=== PATIENT | male | born 1960 | race Caucasian/White ===

== ENCOUNTER 2018-12-22 15:42 | Inpatient (IN) | payer OTHER ==
[~2018-12-22] VITALS: Ht 162.6 cm; Wt 97.5 kg
[2018-12-22] MEDS ORDERED: SODIUM CHLORIDE 0.9% 1000ML 1,000 ML IV STA (15:51)
[2018-12-22] MEDS ORDERED: HYDROCODONE/APAP 10MG-325MG TAB PO NR (16:00)
[2018-12-22] MEDS ORDERED: ONDANSETRON HCL INJ 2MG/ML 2ML 2 MG/ML VIAL IV NR (16:00)
[2018-12-22 16:12] LABS: BASOPHILS % 0.1 % (0.0-1.0); EOSINOPHILS % 0.4 % (0.0-6.0); HEMATOCRIT 43.4 % (38.2-49.6); HEMOGLOBIN 15.1 g/dL (14.0-18.0); MEAN CORPUSCULAR HEMOGLOBIN 31.6 pg (28-32); MEAN CORPUSCULAR HGB CONC 34.8 g/dL (31-35); MEAN CORPUSCULAR VOLUME 90.8 fL (81-99); MONOCYTES # (AUTO) 0.6 (0.2-0.8); MONOCYTES % 5.7 % (4.4-11.3); NEUTROPHILS # (AUTO) 9.1 (2.1-6.9); PLATELET COUNT 210 x10e3/uL (140-360); RED BLOOD COUNT 4.78 x10e6/uL (4.3-5.7); RED CELL DISTRIBUTION WIDTH 12.1 % (11.7-14.4)
[2018-12-22] MEDS ORDERED: KETOROLAC TROMETHAMINE 30 MG/ML VIAL IV NR (16:15)
[2018-12-22 16:32] LABS: ALANINE AMINOTRANSFERASE 34 IU/L (0-55); ALBUMIN/GLOBULIN RATIO 1.3 (0.8-2.0); ALKALINE PHOSPHATASE 58 IU/L (40-150); ANION GAP 16.1 mmol/L (8-16); BLOOD UREA NITROGEN 17 mg/dL (7-26); BUN/CREATININE RATIO 24 (6-25); CALCIUM 9.5 mg/dL (8.4-10.2); CARBON DIOXIDE 24 mmol/L (22-29); CHLORIDE 102 mmol/L (98-107); CREATINE KINASE 76 IU/L (30-200); CREATININE, SERUM 0.71 mg/dL (0.72-1.25); EST GLOMERULAR FILTRATION RATE > 60 ML/MIN (60-); GLUCOSE 151 mg/dL (74-118); POTASSIUM 4.1 mmol/L (3.5-5.1); SODIUM 138 mmol/L (136-145)
--- NOTE | 2018-12-22 17:20 | Diagnostic Imaging Report ---
History: Fall, headache and neck pain Comparison studies:None Technique: Axial images were obtained from the brain and cervical spine. Coronal and sagittal images reconstructed from the axial data. Intravenous contrast: None Dose modulation, iterative reconstruction, and/or weight based adjustment of the mA/kV was utilized to reduce the radiation dose to as low as reasonably achievable. Findings: Head CT: Scalp/skull: No abnormalities. No fractures, blastic or lytic lesions. Brain sulci: Appropriate for age. Ventricles: Normal in size and configuration. No hydrocephalus. Extra-axial spaces: No masses. No fluid collections. Parenchyma: No abnormal densities. No masses, hemorrhage, acute or chronic cortical vascular insults. Sellar/suprasellar region: No abnormalities. Craniocervical junction: Patent foramen magnum. No Chiari one malformation. Mild atherosclerotic calcifications of the carotid siphons Cervical spine CT: Fractures: None. Soft tissues: No gross abnormalities. Atlantoaxial articulation: Intact. Alignment: Reversal of the cervical spine lordosis. Mild dextroscoliosis. Cervicomedullary junction: No abnormalities. Patent foramen magnum. Vertebrae: No infection or neoplasm. Degenerative changes: Uncinate process and facet results in mild left foraminal narrowing and C4-C6. Incidental findings: Mild groundglass opacities at the right lung apex, nonspecific. Impression: Head CT: 1. No acute intracranial abnormality. Cervical spine CT: 1. No acute abnormalities. 2. Cannot exclude ligament, spinal cord and or vascular abnormalities on the basis of this examination. Signed by: DR Edwin Rodriguez M.D. on 12/22/2018 5:17 PM
--- NOTE | 2018-12-22 17:28 | Diagnostic Imaging Report ---
History: Fall, back pain Comparison studies: None Technique: Axial images were obtained from T12 through the sacrum. Coronal and sagittal images reconstructed from the axial data. Intravenous contrast: None Dose modulation, iterative reconstruction, and/or weight based adjustment of the mA/kV was utilized to reduce the radiation dose to as low as reasonably achievable. Findings: Number of non-rib bearing vertebral bodies: 5 Alignment: Normal lordosis. No scoliosis. Soft tissues: Paraspinal findings stranding at L1 level. Atherosclerotic calcifications of the abdominal aorta Paraspinal muscles: Unremarkable. Vertebrae: Acute compression fracture of L1 vertebral body with involvement of the superior endplate, anterior and posterior aspect of the vertebral body with mild retropulsion resulting in mild canal stenosis with approximately 10-20% loss of height. Degenerative changes: Heterogeneously hyperintense or Grossly patent canal and foramina. Sacroiliac joints: No degenerative changes. IMPRESSION: 1. Acute compression fracture of L1 superior endplate with mild retropulsion results in mild canal stenosis. 2. No significant (moderate or severe) canal stenosis or foraminal narrowing. The above finding was reported and acknowledged by Dr. Goldstein at 5:15 PM 12/22/2018. Signed by: DR Edwin Rodriguez M.D. on 12/22/2018 5:25 PM
[2018-12-22] MEDS ORDERED: DEXAMETHASONE SOD PHOS 10 MG/1 ML VIAL IM NR (17:30)
--- OUTSIDE RECORDS SUMMARY | 2018-12-22 18:10 | XMS REPORT ---
[facility] Address Unknown Phone Unavailable Care Team Providers Care Scale Adjuster Name Role Phone Steven WARREN Unavailable Unavailable Problems This patient has no known problems. Allergies, Adverse Reactions, Alerts This patient has no known allergies or adverse reactions. Medications This patient has no known medications. Results Test Description Test Time Test Comments Text Results Atomic Results Result Comments CT LUMBAR SPINE WO 2018-12-22 17:17:00 [facility] [address] [address] Patient Name: MARI LUDWIG MR #: [id number] : 1960 Age/Sex: 58/M Req #: [id number] Adm Physician: Ordered by: ROQUE HERRMANN WEB [employer]ODUCTION MANAGER Report #: [id number] Location: ER Room/Bed: Procedure: [id number] CT/CT LUMBAR SPINE WO Exam Date: 12/22/18 Exam Time: 1625 REPORT STATUS: Signed History: Fall, back pain Comparison studies: None Technique: Axial images were obtained from T12 through the sacrum. Coronal and sagittal images reconstructed from the axial data. Intravenous contrast: None Dose modulation, iterative reconstruction, and/or weight based adjustment of the mA/kV was utilized to reduce the radiation dose to as low as reasonably achievable. Findings: Number of non-rib bearing vertebral bodies: 5 Alignment: Normal lordosis. No scoliosis. Soft tissues: Paraspinal findings stranding at L1 level. Atherosclerotic calcifications of the abdominal aorta Paraspinal muscles: Unremarkable. Vertebrae: Acute compression fracture of L1 vertebral body with involvement of the superior endplate, anterior and posterior aspect of the vertebral body with mild retropulsion resulting in mild canal stenosis with approximately 10-20% loss of height. Degenerative changes: Heterogeneously hyperintense or Grossly patent canal and foramina. Sacroiliac joints: No degenerative changes. IMPRESSION: 1. Acute compression fracture of L1 superior endplate with mild retropulsion results in mild canal stenosis. 2. No significant (moderate or severe) canal stenosis or foraminal narrowing. The above finding was reported and acknowledged by Dr. Warren at 5:15 PM 12/22/2018. Signed by: DR Edwin Rodriguez M.D. on 12/22/2018 5:25 PM Dictated By: EDWIN GUIDRY MD 24 Transcribed By: DREW on 12/22/181724 COPY TO: ROQUE HERRMANN WEB PRODUCTION MANAGER CT BRAIN WO 2018-12-22 17:09:00 [address] [address] Patient Name: MARI LUDWIG MR #: [id number] : 1960 Age/Sex: 58/M Req #: [id number] Adm Physician: Ordered by: ROQUE HERRMANN [employer]ODUCTION MANAGER Report #: [id number] Location: ER Room/Bed: Procedure: [id number] CT/CT BRAIN WO Exam Date: 12/22/18 Exam Time: 1625 REPORT STATUS: Signed History: Fall, headache and neck pain Comparison studies:Non e Technique: Axial images were obtained from the brain and cervical spine. Coronal and sagittal images reconstructed from the axial data. Intravenous contrast: None Dose modulation, iterative reconstruction, and/or weight based adjustment of the mA/kV was utilized to reduce the radiation dose to as low as reasonably achievable. Findings: Head CT: Scalp/skull: No abnormalities. No fractures, blastic or lytic lesions. Brain sulci: Appropriate for age. Ventricles: Normal in size and configuration. No hydrocephalus. Extra-axial spaces: No masses. No flu id collections. Parenchyma: No abnormal densities. No masses, hemorrhage, acute or chronic cortical vascular insults. Sellar/suprasellar region: No abnormalities. Craniocervical junction: Patent foramen magnum. No Chiari one malformation. Mild atherosclerotic calcifications of the carotid siphons Cervical spine CT: Fractures: None. Soft tissues: No gross abnormalities. Atlantoaxial articulation: Intact. Alignment: Reversal of the cervical spine lordosis. Mild dextroscoliosis. Cervicomedullary junction: No abnormalities. Patent foramen magnum. Vertebrae: No infection or neoplasm. Degenerative changes: Uncinate process and facet results in mild left foraminal narrowing and C4-C6. Incidental findings: Mild groundglass opacities at the right lung apex, nonspecific. Impression: Head CT: 1. No acute intracranial abnormality. Cervical spine CT: 1. No acute abnormalities. 2. Cannot exclude ligament, spinal cord and or vascular abnormalities on the basis of this examination. Signed by: DR Edwin Rodriguez M.D. on 12/22/2018 5:17 PM Dictated By: EDWIN RODRIGUEZ MD 16 Transcribed By: DREW on 12/22/181716 COPY TO: ROQUE HERRMANN NP CT CERVICAL SPINE WO 2018-12-22 17:09:00 [address] [address] Patient Name: MARI LUDWIG MR #: [id number] : 1960 Age/Sex: 58/M Req #: [id number] Adm Physician: Ordered by: ROQUE HERRMANN NP Report #: [id number] Location: ER Room/Bed: Procedure: [id number] CT/CT CERVICAL SPINE WO Exam Date: 12/22/18 Exam Time: 1625 REPORT STATUS: Signed History: Fall, headache and neck pain Comparison stud ies:None Technique: Axial images were obtained from the brain and cervical spine. Coronal and sagittal images reconstructed from the axial data. Intravenous contrast: None Dose modulation, iterative reconstruction, and/or weight based adjustment of the mA/kV was utilized to reduce the radiation dose to as low as reasonably achievable. Findings: Head CT: Scalp/skull: No abnormalities. No fractures, blastic or lytic lesions. Brain sulci: Appropriate for age. Ventricles: Normal in size and configuration. No hydrocephalus. Extra-axial spaces: No masses. No fluid collections. Parenchyma: No abnormal densities. No masses, hemorrhage, acute or chronic cortical vascular insults. Sellar/suprasellar region: No abnormalities. Craniocervical junction: Patent foramen magnum. No Chiari one malformation. Mild atherosclerotic calcifications of the carotid siphons Cervical spine CT: Fractures: None. Soft tissues: No gross abnormalities. Atlantoaxial articulation: Intact. Alignment: Reversal of the cervical spine lordosis. Mild dextroscoliosis. Cervicomedullary junction: No abnormalities. Patent foramen magnum. Vertebrae: No infection or neoplasm. Degenerative changes: Uncinate process and facet results in mild left foraminal narrowing and C4-C6. Incidental findings: Mild groundglass opacities at the right lung apex, nonspecific. Impression: Head CT: 1. No acute intracranial abnormality. Cervical spine CT: 1. No acute abnormalities. 2. Cannot exclude ligament, spinal cord and or vascular abnormalities on the basis of this examination. Signed by: DR Edwin Rodriguez M.D. on 12/22/2018 5:17 PM Dictated By: EDWIN RODRIGUEZ MD 16 Transcribed By: DREW on 12/22/181716 COPY TO: ROQUE HERRMANN NP
[2018-12-22] MEDS ORDERED: HYDROMORPHONE 2MG/ML 2 MG/ML ML IV PRN (18:30)
[2018-12-22] MEDS: SODIUM CHLORIDE 0.9% 1000ML 1,000 ML IV SCH (19:00)
[2018-12-22 20:30] VITALS: BP 175/91
[2018-12-22 21:05] VITALS: BP 175/91
--- NOTE | 2018-12-22 21:24 | NUR ---
SPOKE TO DR. CERRATO REGARDING BP. NEW ORDER RCV FOR NIFEDIPINE XL 30MG DAILY TO START NOW, HYDRALAZINE 10MG IV Q4H PRN AND ROUTINE CONSULT FOR DR. BANEGAS IN AM.
[2018-12-22] MEDS ORDERED: HYDRALAZINE HCL 20 MG/ML VIAL IV PRN (21:30)
[2018-12-22] MEDS: NIFEDIPINE CR 30 MG TAB PO SCH (22:11)
[2018-12-22 23:48] VITALS: BP 141/90
[2018-12-23 00:32] LABS: CREATINE KINASE 70 IU/L (30-200)
[2018-12-23] MEDS: MORPHINE SULFATE INJ 4 MG/ML INJ 1ML IV PRN ×4 (00:54→23:08)
[2018-12-23] MEDS: SODIUM CHLORIDE 0.9% 1000ML 1,000 ML IV SCH ×3 (00:55→23:07)
[2018-12-23 04:30] VITALS: BP 134/85
[2018-12-23 07:57] LABS: CREATINE KINASE 60 IU/L (30-200)
[2018-12-23 08:32] VITALS: BP 114/77
[2018-12-23] MEDS: NIFEDIPINE CR 30 MG TAB PO SCH (08:35)
[2018-12-23 08:45] VITALS: BP 114/77
[2018-12-23 12:06] VITALS: BP 128/72
[2018-12-23] MEDS: ONDANSETRON HCL INJ 2MG/ML 2ML 2 MG/ML VIAL IV PRN ×2 (13:48→23:12)
--- NOTE | 2018-12-23 15:00 | NUR ---
Received pt at this time from Med/Surg 1 at this time. Pt is aox4 and able to verbalize needs. Denies any pain at this time he was medicated for pain prior to transfer. Pt continues on on IVF NS@125.
--- NOTE | 2018-12-23 15:16 | Diagnostic Imaging Report ---
EXAMINATION: MRI of the lumbar spine without contrast HISTORY: Compression fracture of the lumbar spine (L1) after fall the day before and syncope COMPARISON: Lumbar spine CT 12/22/2018 TECHNIQUE: Sagittal T1, T2, STIR; axial T2 and proton density. FINDINGS: It is assumed that there are 5 lumbar vertebrae. Curvature/Alignment: Normal lordosis. Subtle thoracolumbar kyphosis. Vertebrae: Acute compression fracture of the L1 vertebral body with depression of the superior endplate (decreased vertebral body height by approximately 10%) and minimal about 1 mm posterior retropulsion minimally reaching the posterior cortex, with prominent subchondral bone marrow edema which is minimally extending to the right pedicle. No significant associated canal stenosis and no cord compression. There is no involvement of the posterior elements or ligamentous complex. Conus: Normal, terminating at L1-L2 Cauda equina: Unremarkable. Lower thoracic: Unremarkable. Paraspinal soft tissues: Unremarkable. Degenerative changes: No significant degenerative changes, no disc herniations, no spinal canal or foraminal stenosis. IMPRESSION: Unchanged mild acute compression/burst fracture of the L1 vertebral body with minimal retropulsion, no associated canal stenoses or cord compression. The posterior elements/ligaments are intact. Signed by: Dr. Leigh Alberto M.D. on 12/23/2018 3:13 PM
[2018-12-23 16:14] VITALS: BP 119/79
[2018-12-23] MEDS: ENOXAPARIN SOD INJ 40 MG/0.4 ML SYR SC SCH (17:06)
[2018-12-23 18:41] LABS: CREATINE KINASE 190 IU/L (30-200)
--- NOTE | 2018-12-23 19:30 | NUR ---
Patient visited in room during nursing rounds. Patient alert and oriented x3. Patient has frequent lower back pain and states he is unable to ambulate due to the fractured back (fx on L1). Patient on pain meds prn and on IVF (NS at 125ml/hr). Will monitor pt closely. Call saucedo within reach.
[2018-12-23 20:00] VITALS: BP 137/84
[2018-12-24] VITALS (8 sets, daily range): BP systolic 124–170; BP diastolic 81–95
--- NOTE | 2018-12-24 00:39 | History and Physical ---
CHIEF COMPLAINT: Syncope. HISTORY OF PRESENT ILLNESS: This is a 58-year-old male, morbidly obese with no other past medical history issues and nor does he take any medications at home, comes into the ED after he was chopping some onions and he grated one of his fingers on his hands in which he went to the restroom to stop the bleeding, syncopized and fell to the ground. There was no witnesses when this occurred. The patient denies any prodromal chest pain, palpitations, facial drooping, slurred speech, or any other issues. The patient was then brought into the ED for further evaluation. It seems that the patient likely had a vasovagal episode that led to this particular syncopal episode. The patient denies any recent cough, congestion, fever, or any other complaints. No chest pain. No palpitations. No abdominal pain or any other complaints. The patient states he is back to normal baseline with no other issues. The patient was seen and evaluated at bedside on the medical floor. Currently, he is doing well with no other issues at this time. REVIEW OF SYSTEMS: 1. Pertinent positives: Syncopal episode. 2. Pertinent negatives: Denies any chest pain, palpitations, nausea, vomiting, diarrhea, dysuria, hematuria, frequency, urgency, lightheadedness, dizziness, abdominal pain, headaches, shortness of breath, cough, congestion, fever, or any other complaints. The rest of 14-point review of systems are reviewed with the patient and are negative. ALLERGIES: NO KNOWN DRUG ALLERGIES. HOME MEDICATIONS: None. PAST MEDICAL HISTORY: None. PAST SURGICAL HISTORY: Reports none. FAMILY HISTORY: Hypertension and diabetes. SOCIAL HISTORY: No drugs. No alcohol. Does not smoke. Good social support. PHYSICAL EXAMINATION: VITAL SIGNS: Temperature is 98.7, pulse 89, respiratory rate is 20, blood pressure is 119/79, and pulse ox 96% on room air. GENERAL: Not in acute distress. Alert and oriented x3. Cooperative on examination. HEENT: Head is normocephalic and atraumatic. Warm to touch. Good cap refill. Eyes; pupils are equal, round, and reactive to light bilaterally. Extraocular movements intact bilaterally. NECK: Supple. Good range of motion throughout. No evidence of any erythema or exudates in the posterior pharynx. Has poor dentition. PULMONARY: Clear to auscultation bilaterally. No wheezing, rales, or rhonchi. No crackles appreciated. CARDIOVASCULAR: Positive S1 and S2. No murmurs, rubs, or gallops appreciated. GI: Abdomen is soft, nondistended, and nontender to palpation. Bowel sounds present. MUSCULOSKELETAL: Strength is 5/5 throughout. No evidence of any muscle deficits on examination. NEUROLOGICAL: Cranial nerves II through XII grossly intact. No evidence or any neurological deficits on exam. SKIN: Intact. Warm to touch. Good cap refill. PSYCHIATRIC: Normal affect and mood. EXTREMITIES: No edema. Good range of motion throughout. LABORATORY FINDINGS: White count is 7.7, hemoglobin is 15, hematocrit 43, and platelets of 210. Chemistry: Sodium 138, potassium 4.1, chloride 102, bicarb 24, anion gap of 16, BUN 17, creatinine 0.71, glucose is 151, calcium 9.5, total bilirubin was 1.5. AST 26, ALT 34, alkaline phosphatase 58. CK 76. Troponins were all negative. Total protein 7.1, albumin was 4. IMAGING STUDIES: CT lumbar spine shows acute compression fracture of L1, superior endplate with mild retropulsion resulting in mild canal stenosis. CT cervical spine was negative. CT brain was found to be negative. MRI of the lumbar spine; unchanged, acute compression burst fracture of L1 vertebral body with mild retropulsion. No associated canal stenosis or cord compression. Posterior elements of the ligaments are intact. IMPRESSION: 1. Syncopal episode of unknown etiology, seems to be vasovagal in nature. 2. Small laceration on his middle finger, but now not bleeding. 3. Hypotension. 4. Morbid obesity. PLAN: At this time, MRI of the lumbar spine has been reviewed. We will go ahead and get Neurosurgery to evaluate the patient. Treat the patient with some conservative treatment. He is currently doing well. He is having difficulty that he reports pain when he ambulates. In addition to his blood pressure, nifedipine XL has been ordered. I did order MRI of the brain, carotid ultrasound, 2D echo, Cardiology consultation, cardiac telemetry and one set of enzymes to rule out the etiology of his syncope. I feel like the patient likely syncopized from his underlying vasovagal episode when he was in the bathroom, attending to his bleeding to his finger. At this time, we will continue with these particular orders and put on Lovenox for DVT prophylaxis. MD BALJEET Love/SANTHOSH /[id number]
--- NOTE | 2018-12-24 01:45 | Consultation ---
DATE OF CONSULTATION: 12/23/2018 Cardiac Consultation. REASON FOR CONSULTATION: Syncope. HISTORY: A 58-year-old gentleman, who denied having any health problem, who was cutting an onion, he cut his finger and went to the bathroom to wash his hand and then he fell. He fractured his first lumbar vertebrae. His EKG showed Q-wave changes and cardiac consultation is obtained. I visited with the patient, who denied having any chest pain or any problem. He states everything preceded with his cutting finger. There is no prior history of syncope, although more than 17 years ago with similar problem was trauma to his hand and so on he passed out briefly. 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 He is on his feet all the time, he will go up and down, he does not have any angina, however, his legs get tired. He does have swelling at the end of the day of his feet. There is no recent travel. There is no pleuritic or pericarditic component of chest pain. REVIEW OF SYSTEMS: Done to all 14 systems, will be summarized for clarity. GENERAL: No fever. No chills. HEENT: PULMONARY: No cough. No hemoptysis. CARDIAC: No angina. Only shortness of breath on exertion and swelling of the leg at the end of the day. No prior palpitation. Only one episode of syncope as described above. GI: No hematemesis. No melena. : No hematuria. No dysuria. MUSCULOSKELETAL: Only leg fatigue on exertion. No claudication. Minimal swelling of the leg at the end of the day. SKIN: Some discoloration of the lower extremity. HEMATOLOGY: No easy bruising or bleeding. NEUROLOGIC: No headache. No seizure activity. ENDOCRINE: No polyuria. No polydipsia. SOCIAL HISTORY: He is , is nonsmoker and non-alcohol drinker. 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 FAMILY HISTORY: Father was diabetic, but he of bladder cancer. He also had prostate cancer. Mother of stomach cancer at age 67. Only one sister with metabolic syndrome. No children. HOME MEDICATIONS: None. ALLERGIES: NONE. PAST MEDICAL HISTORY: The patient had one prior episode of syncope 17 years ago. The patient had appendectomy and hernia surgery. PHYSICAL EXAMINATION: VITAL SIGNS: Height of 5 feet 4 inches, weight of 197 pounds. Blood pressure 120/80, heart rate of 90, respiratory rate of 18. HEENT: Pupils are reactive. NECK: No elevation of jugular venous pulsation. No bruit. CHEST: Clear to auscultation and percussion. HEART: PMI 5th left intercostal space. Normal first and second heart sound. ABDOMEN: Soft. There is good bowel sounds. No organomegaly. No abdominal bruit. EXTREMITIES: No clubbing. Some skin discoloration of the rosario. No edema currently. He has good distal pulses. No delay between pulses. NEUROLOGIC: Awake, alert, oriented. No motor or sensory deficits. LAB DATA: As per chart. CT scan of chest showed no acute changes. EKG showing nonspecific T-wave changes, although they are seen also in the anterior leads. IMPRESSION AND PLAN: 1. One episode of syncope seems to be vasovagal. 2. No active cardiac symptoms. 3. Abnormality on the T-wave are noted. RECOMMENDATIONS: Cardiac luis, my recommendations are to keep observation on telemetry. Most likely this episode is vasovagal. We will check lipid profile. We will review his echocardiogram and carotid Doppler, which were ordered when they will be done. Case discussed and explained to the patient and his sister. They were advised to have stress test after resolution of his problem. Of course, if in case of him having any symptoms then further steps to be done. MD TRES Rodriguez/SANTHOSH /[id number]
[2018-12-24] MEDS: MORPHINE SULFATE INJ 4 MG/ML INJ 1ML IV PRN ×5 (03:29→22:13)
[2018-12-24] MEDS: ONDANSETRON HCL INJ 2MG/ML 2ML 2 MG/ML VIAL IV PRN ×5 (03:29→22:13)
[2018-12-24 06:18] LABS: CHOL/HDL RATIO 3.6 (3.9-4.7)
[2018-12-24 06:43] LABS: THYROID STIMULATING HORMONE 3.537 uIU/mL (0.350-4.940)
--- NOTE | 2018-12-24 08:18 | NUR ---
Pt was able to sit on side of the bed with minimal assistance. Pt stated feeling slight discomfort during transition. Pt up in chair at bedside with assistance, able to bear weight to BLE. Pt stated that he feels better sitting up to remove pressure off back.
[2018-12-24] MEDS: ENOXAPARIN SOD INJ 40 MG/0.4 ML SYR SC SCH (18:08)
--- NOTE | 2018-12-24 19:35 | NUR ---
Patient visited in room during nursing rounds. Patient alert and oriented x3. Patient has frequent lower back pain and states he is unable to ambulate due to the fractured back (fx on L1). Patient on pain meds prn. Will monitor pt closely. Call saucedo within reach.
--- NOTE | 2018-12-24 21:02 | Progress Note ---
DATE: 12/24/2018 Medicine Progress Note SUBJECTIVE: The patient is complaining of lower back pain. Still awaiting Neurosurgery evaluation. OBJECTIVE: VITAL SIGNS: Temperature 98.0, pulse 91, respiratory rate is 20, blood pressure 170/95, and pulse ox 95% on room air. GENERAL: Not in acute distress. Alert and oriented x3. Cooperative on examination. HEENT: Head is normocephalic and atraumatic. Eyes; pupils are equal, round, and reactive to light bilaterally. Extraocular movements are intact bilaterally. Throat, no evidence of erythema or exudates in the posterior pharynx. Has poor dentition. NECK: Supple. Good range of motion. PULMONARY: Clear to auscultation bilaterally. No wheezing, no rales, no rhonchi, no crackles appreciated. CARDIOVASCULAR: Positive S1, S2. No murmurs, rubs, or gallops appreciated. ABDOMEN: Soft, nondistended, and nontender to palpation. Bowel sounds present. MUSCULOSKELETAL: Strength is 5/5 throughout. No evidence of any muscle deficits on examination. No weakness appreciated. NEUROLOGICAL: Cranial nerves II through XII grossly intact. No evidence of any neurological deficits on exam. SKIN: Intact. Warm to touch. Good cap refill. PSYCHIATRIC: Normal affect and mood. EXTREMITIES: No edema. Good range of motion throughout. LABORATORY DATA: White count 10.7, hemoglobin 15.1, hematocrit 43, and platelets of 210. Chemistry reviewed and stable. MICROBIOLOGY: None. IMAGING: Nothing new. IMPRESSION: 1. Syncopal episode of unknown etiology, seems to be vasovagal in nature. 2. Small laceration of the middle finger, resolved. 3. Hypotension, resolved. 4. Morbid obesity. PLAN: At this time, a 2D echo was performed, showed no evidence of any significant stenosis. As per preliminary results, 2D echo showed an EF of 50% to 55%. Await all results from Cardiology. The patient needs to follow up with outpatient cardiology for cardiac stress test. The last syncopal episode is vasovagal in nature. All his cardiac enzymes are negative. No alarms on cardiac telemetry. Awaiting for Neurosurgery evaluation. Pain control. Once cleared by Neurosurgery, the patient can be discharged home. MD BALJEET Love/MODL /[id number]
[2018-12-25] VITALS (9 sets, daily range): BP systolic 144–186; BP diastolic 81–102
--- NOTE | 2018-12-25 00:15 | NUR ---
Patient called nurse's station and asked for nurse. Patient was assessed and pt c/o shortness of breath (i.e. described as unable to catch his breath) and felt his heart was racing. Tele check revealed 123-126 HR sinus tachycardia. O2 sat 95% on 2L NC. Informed pt will notify Dr. Cary to obtain possible orders.
--- NOTE | 2018-12-25 00:25 | NUR ---
Called Dr. Cary and informed about patient feeling short of breath and heart "racing" after receiving a dose of Hydralazine 10mg IV. V/S report after receiving a dose of Hydralazine was: BP = 151/82, HR = 126, O2 sat 95% on 2L NC. MD aware and ordered to start pt on Duoneb 3ml INH Q4hr prn and portable CXR in AM (12/25/18).
[2018-12-25] MEDS ORDERED: ALBUTEROL/IPRATROPIUM 3 ML NEB NEB PRN (00:30)
--- NOTE | 2018-12-25 00:40 | NUR ---
RT in room providing pt with breathing treatment.
[2018-12-25] MEDS: MORPHINE SULFATE INJ 4 MG/ML INJ 1ML IV PRN ×4 (02:08→20:28)
[2018-12-25] MEDS: ONDANSETRON HCL INJ 2MG/ML 2ML 2 MG/ML VIAL IV PRN ×4 (02:08→20:28)
[2018-12-25 06:22] LABS: BASOPHILS % 0.2 % (0.0-1.0); EOSINOPHILS % 0.4 % (0.0-6.0); HEMATOCRIT 41.6 % (38.2-49.6); HEMOGLOBIN 13.9 g/dL (14.0-18.0); LYMPHOCYTES # (AUTO) 0.7 (1.0-3.2); LYMPHOCYTES % 6.2 % (18.0-39.1); MEAN CORPUSCULAR HEMOGLOBIN 31.3 pg (28-32); MEAN CORPUSCULAR HGB CONC 33.4 g/dL (31-35); MEAN CORPUSCULAR VOLUME 93.7 fL (81-99); MONOCYTES # (AUTO) 0.8 (0.2-0.8); MONOCYTES % 7.3 % (4.4-11.3); NEUTROPHILS # (AUTO) 9.1 (2.1-6.9); NEUTROPHILS % 85.2 % (38.7-80.0); PLATELET COUNT 188 x10e3/uL (140-360); RED BLOOD COUNT 4.44 x10e6/uL (4.3-5.7); RED CELL DISTRIBUTION WIDTH 12.5 % (11.7-14.4)
--- NOTE | 2018-12-25 06:28 | Diagnostic Imaging Report ---
Examination: Single AP view of the chest. COMPARISON: None. INDICATION: Shortness of breath DISCUSSION: Lines/tubes: None. Lungs: Low lung volume in the right lung with lung base atelectasis. The left lung is clear. Pleura: No pleural effusion or pneumothorax. Heart and mediastinum: Prominent heart size. Bones and soft tissues: No acute bony abnormalities. IMPRESSION: Low lung volume in the right lung with atelectasis. Signed by: Dr. Mitch Hirsch M.D. on 12/25/2018 6:24 AM
[2018-12-25 06:29] LABS: ANION GAP 12.2 mmol/L (8-16); BLOOD UREA NITROGEN 17 mg/dL (7-26); BUN/CREATININE RATIO 27 (6-25); CALCIUM 9.1 mg/dL (8.4-10.2); CARBON DIOXIDE 26 mmol/L (22-29); CHLORIDE 106 mmol/L (98-107); CREATININE, SERUM 0.63 mg/dL (0.72-1.25); EST GLOMERULAR FILTRATION RATE > 60 ML/MIN (60-); GLUCOSE 117 mg/dL (74-118); POTASSIUM 4.2 mmol/L (3.5-5.1); SODIUM 140 mmol/L (136-145)
[2018-12-25] MEDS: NIFEDIPINE CR 30 MG TAB PO SCH (11:10)
--- NOTE | 2018-12-25 12:17 | NUR ---
CALL PLACED OUT TO DR. BANEGAS REGARDING FOLLOW-UP CONSULT- AWAITING CALLBACK.
--- NOTE | 2018-12-25 13:37 | Progress Note ---
DATE: 12/25/2018 Medicine Progress Note SUBJECTIVE: The patient states he is feeling much better today. He does have lower back pain. Pending neurosurgery evaluation. OBJECTIVE: VITAL SIGNS: Temperature is 96.7, pulse 98, respiratory rate is 20, blood pressure 161/96, pulse ox 96% on 2 L nasal cannula. GENERAL: Not in acute distress. Alert and oriented x3. Cooperative on examination. HEENT: Head is normocephalic and atraumatic. Eyes; pupils are equal, round, and reactive to light bilaterally. Extraocular movements are intact bilaterally. Throat, no evidence of erythema or exudates in the posterior pharynx. Has poor dentition. NECK: Supple. Good range of motion. PULMONARY: Clear to auscultation bilaterally. No wheezing, no rales, no rhonchi, no crackles appreciated. CARDIOVASCULAR: Positive S1, S2. No murmurs, rubs, or gallops appreciated. ABDOMEN: Soft, nondistended, and nontender to palpation. Bowel sounds present. MUSCULOSKELETAL: Strength is 5/5 throughout. No evidence of any muscle deficits on examination. No weakness appreciated. NEUROLOGICAL: Cranial nerves 2 through 12 grossly intact. No evidence of any neurological deficits on exam. SKIN: Intact. Warm to touch. Good cap refill. PSYCHIATRIC: Normal affect and mood. EXTREMITIES: No edema. Good range of motion throughout. LAB FINDINGS: Show white count 10.6, hemoglobin 13.9, hematocrit is 42, platelets are 188. Chemistry; sodium 140, potassium 4.2, chloride 106, bicarb 26, anion gap of 12, BUN is 17, creatinine is 0.63, glucose is 170, calcium is 9.1. TSH is 3.5. IMAGING STUDIES: Chest x-ray was negative. IMPRESSION: 1. Syncopal episode, likely to be vasovagal in nature. 2. Small laceration of the middle finger of his left hand, resolved. 3. Hypotension, resolved. 4. Morbid obesity. 5. Chronic back pain with underlying acute compression fracture of L1. PLAN: At this time, the patient refuses MRI of the brain. I discussed this with him with the nurse present and he continues to refuse it. We are awaiting neurosurgery evaluation and recommendations. Continue with pain control orally and avoid IV pain medicine. Plan to discharge soon. Per Cardiology, no further workup was needed. We will continue to follow the same plan of care. MD BALJEET Love/SANTH[place]H /[id number]
[2018-12-25] MEDS: ACETAMINOPHEN/CODEINE 300MG - 30MG TAB PO PRN (16:01)
--- NOTE | 2018-12-25 16:48 | NUR ---
RECEIVED CALL FROM DR. BANEGAS- DR. BANEGAS ASKED RN TO INFORM PATIENT NO SURGERY WILL BE NEEDED AND HE WILL SEE THE PATIENT TOMORROW. ASKED DR. BANEGAS FOR PT EVAL- ORDER RECEIVED FOR EVALUATION FOR CLEARANCE.
[2018-12-25] MEDS: ENOXAPARIN SOD INJ 40 MG/0.4 ML SYR SC SCH (17:34)
--- NOTE | 2018-12-25 19:46 | NUR ---
PATIENT IN STABLE CONDITION WITH NO S/S OF RESPIRATORY DISTRESS. CALL LIGHT IS WITHIN REACH, PATIENT INSTRUCTED TO CALL FOR ASSISTANCE NEEDED. BEDSIDE REPORT GIVEN TO ONCOMING NURSE.
--- NOTE | 2018-12-25 19:50 | NUR ---
Received change of shift report from AM nurse. Walking round completed.
[2018-12-26] VITALS: BP 168/96
[2018-12-26 04:00] VITALS: BP 113/63
--- NOTE | 2018-12-26 06:29 | NUR ---
Patient rest quitly in bed.
--- NOTE | 2018-12-26 07:05 | NUR ---
PATIENT IS IN STABLE CONDITION WITH NO S/S OF RESPIRATORY DISTRESS. PATIENT DENIES PAIN. BED ALARM ON. CALL LIGHT IS WITHIN REACH OF PATIENT, PATIENT INSTRUCTED TO CALL FOR ASSISTANCE NEEDED.
[2018-12-26 07:43] VITALS: BP 133/77
[2018-12-26 07:54] VITALS: BP 133/77
[2018-12-26] MEDS: NIFEDIPINE CR 30 MG TAB PO SCH (08:24)
--- NOTE | 2018-12-26 09:58 | NUR ---
PATIENT WORKED WITH PHYSICAL THERAPY- PATIENT AMBULATED FROM HIS ROOM TO THE NURSING STATION AND BACK. PUP MARKED COMPLETED. PATIENT SITTING UP IN THE RECLINER AND WILL CALL FOR ASSISTANCE NEEDED.
--- NOTE | 2018-12-26 10:19 | NUR ---
DR. BANEGAS ON THE UNIT- RECEIVED CLEARANCE FOR DISCHARGE. DR. BHANDARI'S N.PKamila ON THE UNIT- RECEIVED CLEARANCE FROM CARDIAC STANDPOINT AND FOR PATIENT TO F/U IN SEVERAL MONTHS.
[2018-12-26 11:16] VITALS: BP 138/86
[2018-12-26] MEDS ORDERED: DOCUSATE SODIUM LIQD 100 MG/10 ML UDC PO PRN (12:15)
[2018-12-26] MEDS: ACETAMINOPHEN/CODEINE 300MG - 30MG TAB PO PRN ×3 (12:42→19:55)
[2018-12-26 15:44] VITALS: BP 141/83
[2018-12-26] MEDS ORDERED: NIFEDIPINE ER30 M1 PO (15:56)
[2018-12-26] MEDS ORDERED: TYLENOL # 31 EA PO (15:56)
--- NOTE | 2018-12-26 16:59 | Consultation ---
DATE OF CONSULTATION: 12/26/2018 REASON FOR CONSULTATION: L1 compression fracture. HISTORY OF PRESENT ILLNESS: The patient is a 58-year-old obese man, who fell at home and presented to the emergency room here with back pain several days ago. MRI revealed a very mild L1 compression fracture without significant retropulsion or compromise of the spinal canal. The patient has been hospitalized here since 12/22/2018 and being treated with pain medications. His pain has markedly improved. Today, he is ambulating without any significant pain. He has remained neurologically intact. He denies any leg symptoms. IMPRESSION: Mild L1 compression fracture without significant retropulsion or compromise of the spinal canal. He is neurologically intact and his pain has greatly improved. He does not require surgical treatment or vertebroplasty. He can be discharged home. He does not require followup with me. 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 I will sign off. Homero Titus MD PP/S[place]H /[id number]
[2018-12-26] MEDS: ENOXAPARIN SOD INJ 40 MG/0.4 ML SYR SC SCH (18:50)
--- NOTE | 2018-12-26 19:15 | NUR ---
PATIENT IS IN STABLE CONDITION WITH NO S/S OF RESPIRATORY DISTRESS. NO PAIN VOICED. IV SALINE LOCKED. PATIENT WILL DISCHARGE THIS EVENING. CALL LIGHT IS WITHIN REACH OF PATIENT AND PATIENT INSTRUCTED TO CALL FOR ASSISTANCE NEEDED. BEDSIDE REPORT GIVEN TO ONCOMING NURSE.
--- NOTE | 2018-12-26 20:44 | Consultation ---
DATE OF CONSULTATION: 12/26/2018 CHIEF COMPLAINT: Low back pain. HISTORY OF PRESENT ILLNESS: This is a pleasant 58-year-old male, who complains of low back pain after suffering a fall 5 days ago. He denies any lower extremity weakness or paresthesias in either leg. He states since the fall, his low back pain has been improving. He states he has been able to walk with physical therapy. PAST MEDICAL HISTORY: See H and P. 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 PHYSICAL EXAMINATION: In general, he is in no apparent distress. He is awake, alert, and oriented appropriately. He is sitting up in the recliner. He is able to stand without assistance. He has painless passive range of motion in both hips. Tension signs are negative. He has age-appropriate strength in both lower extremities. There are no strength deficits noted. Distal neurovascular exam is grossly normal. IMAGING: MRI of the lumbar spine was reviewed and shows a mild L1 compression fracture with roughly 10% loss of height. There is no cord compromise. ASSESSMENT AND PLAN: This is a 58-year-old male with a mild L1 compression fracture. The treatment was discussed with the patient. He has already been cleared for discharge by Neurosurgery. There are no plans for surgical intervention for vertebroplasty. The treatment is physical therapy and pain medication as needed. He can discharge from Orthopedics perspective. He is instructed to follow up in our office in roughly four weeks for repeat x-ray of the lumbar spine. Thank you for the kind consultation. Dictated by Jem Mcdonald PA-C MD AMANDA Quispe/[place]H /[id number]
--- NOTE | 2018-12-27 13:23 | Discharge Summary ---
MD BALJEET Love/S[place]H /[id number]
--- NOTE | 2018-12-28 08:42 | Discharge Summary ---
FINAL DISCHARGE DIAGNOSES: 1. Vasovagal syncope. 2. Small laceration in the middle finger of the left hand, resolved. 3. Hypotension, resolved. 4. Morbid obesity. 5. Acute compression fracture of L1. No further intervention needed. CONSULTANTS: We had to refer to the Orthopedics. We had Cardiology. PHYSICAL EXAMINATION: VITAL SIGNS: Temperature is 97.5, pulse 99, respiratory rate 18, blood pressure 141/83, pulse ox 92% on room air. LABORATORY FINDINGS: Show white count 10.6, hemoglobin is 13, hematocrit 42, platelets of 188. Chemistry; sodium 140, potassium 4.2, chloride 106, bicarb 26, anion gap of 12, BUN 17, creatinine 0.63, glucose is 117, calcium is 9.1. All troponins were found to be negative. LDL was 99. Microbiology, none. IMAGING STUDIES: Lumbar CT shows acute compression fracture of L1, superior endplate and mild retropulsion resulting canal stenosis. No significant canal stenosis or foraminal narrowing. CT cervical spine was found to be negative as well. CT brain was found to be negative as well. MRI of the lumbar spine shows unchanged mild acute compression burst fracture of L1 vertebral body with ligaments are intact. Chest x-ray was found to be negative evidence of any stenosis. HOSPITAL COURSE: This is a 58-year-old male, who came into the ED after having a vasovagal syncope that occurred at home. The patient reports that he was working in the kitchen and he had a small laceration on his left middle finger. He went to the bathroom and then he syncopized. No reports of any stroke-like symptoms, seizure-like activity, no slurred speech, facial drooping, or any weakness. No reports of chest pain or palpitations. While here, the patient had Cardiology evaluate the patient. No further workup was needed by Cardiology. A 2D echo was found within normal range and carotid ultrasound was found within normal range. The patient had an acute L1 compression fracture, requiring neurosurgery and orthopedic consultation. The patient has been cleared by both consultants for discharge home with outpatient followup. I recommend conservative care with pain control. On discharge, the patient was doing well, ambulating with PT and OT with no other issues. On the day of discharge, vital signs stable, labs remained and stable. The patient is evaluated and examined thoroughly on the day of discharge with no other complaints. The patient verbalized understanding and agrees with plan of care to follow up as an outpatient with the primary care physician in 1 week and consultants during surgery in about 2 to 3 weeks time or as needed if pain continues. MEDICATIONS: See med reconciliation form. DISPOSITION: To home. CONDITION: Stable. DIET: Heart healthy. In the event of any worsening symptoms, the patient advised to come back to the ED for further evaluation. Discharge summary took greater than 35 minutes. MD BALJEET Love/MODL /[id number]
== END 2018-12-26 20:25 | disposition home or self-care (01) | DRG 544 ==
LOC: ER 15:46 → ERHOLD 18:08 → MED/SURG 20:03 → MED/SURG3 12-23 14:48
PROVIDERS: ADMIT Internal Medicine; ATTEND Internal Medicine
DX: M48.56XA Collapsed vertebra, not elsewhere classified, lumbar region, initial encounter for fracture (principal); S61.213A Laceration without foreign body of left middle finger without damage to nail, initial encounter; I95.9 Hypotension, unspecified; E66.01 Morbid (severe) obesity due to excess calories; Z68.36 Body mass index [BMI] 36.0-36.9, adult
CPT/HCPCS: 36415; 70450; 71045; 72125; 72131; 72148; 80048; 80053; 80061; 82550; 82553; 82948; 84443; 84484; 85025; 93005; 93306; 93880; 94640; 96374; 96375; 99284; J0360; J1100; J1650; J1885; J2270; J2405; J7030

== ENCOUNTER 2018-12-29 23:17 | Inpatient (IN) | payer OTHER ==
[~2018-12-29] VITALS: Ht 162.6 cm; Wt 97.5 kg
[~2018-12-29 23:17] MED LIST: NIFEDIPINE ER30 M1 PO; TYLENOL # 31 EA PO
[2018-12-29] MEDS ORDERED: ALBUTEROL SULF 0.083% NEB SOLN 3 ML NEB NEB STA (23:26)
[2018-12-29] MEDS ORDERED: IPRATROPIUM BROMIDE 0.02% 2.5 ML NEB NEB ONE (23:30)
[2018-12-29 23:54] LABS: BASOPHILS % 0.2 % (0.0-1.0); EOSINOPHILS # (AUTO) 0.2 (0.0-0.4); EOSINOPHILS % 1.7 % (0.0-6.0); HEMOGLOBIN 15.8 g/dL (14.0-18.0); LYMPHOCYTES # (AUTO) 0.6 (1.0-3.2); LYMPHOCYTES % 6.4 % (18.0-39.1); MEAN CORPUSCULAR HEMOGLOBIN 31.6 pg (28-32); MEAN CORPUSCULAR HGB CONC 35.1 g/dL (31-35); MONOCYTES # (AUTO) 0.9 (0.2-0.8); MONOCYTES % 9.2 % (4.4-11.3); NEUTROPHILS # (AUTO) 7.5 (2.1-6.9); NEUTROPHILS % 81.2 % (38.7-80.0); PLATELET COUNT 215 x10e3/uL (140-360); RED CELL DISTRIBUTION WIDTH 12.4 % (11.7-14.4)
[2018-12-30 00:03] LABS: INR 0.95; PROTHROMBIN TIME 13.2 seconds (11.9-14.5)
[2018-12-30 00:04] LABS: PARTIAL THROMBOPLASTIN TIME 25.4 seconds (23.8-35.5)
[2018-12-30 00:13] LABS: ALANINE AMINOTRANSFERASE 121 IU/L (0-55); ALBUMIN 3.6 g/dL (3.5-5.0); ALBUMIN/GLOBULIN RATIO 1.1 (0.8-2.0); ALKALINE PHOSPHATASE 74 IU/L (40-150); ANION GAP 15.9 mmol/L (8-16); BLOOD UREA NITROGEN 19 mg/dL (7-26); BUN/CREATININE RATIO 32 (6-25); CALCIUM 9.5 mg/dL (8.4-10.2); CARBON DIOXIDE 27 mmol/L (22-29); CHLORIDE 101 mmol/L (98-107); CREATINE KINASE 204 IU/L (30-200); CREATININE, SERUM 0.59 mg/dL (0.72-1.25); EST GLOMERULAR FILTRATION RATE > 60 ML/MIN (60-); GLUCOSE 112 mg/dL (74-118); POTASSIUM 3.9 mmol/L (3.5-5.1); SODIUM 140 mmol/L (136-145)
--- NOTE | 2018-12-30 00:28 | Diagnostic Imaging Report ---
Examination: Single AP view of the chest. COMPARISON: December 2018 INDICATION: Shortness of breath DISCUSSION: Lines/tubes: None. Lungs: Low lung volume with right base atelectasis. Central pulmonary venous congestion. Pleura: No pleural effusion or pneumothorax. Heart and mediastinum: The heart and the mediastinum are unremarkable. Bones and soft tissues: No acute bony abnormalities. IMPRESSION: 1. Central pulmonary venous congestion Signed by: Dr. Mitch Hirsch M.D. on 12/30/2018 12:25 AM
[2018-12-30] MEDS ORDERED: IOPAMIDOL 370 MG/ML 200 ML INFUS..BTL INJ ONE (00:33)
[2018-12-30] MEDS ORDERED: SODIUM CHLORIDE 0.9% 50ML 50 ML ONE (00:33)
[2018-12-30 00:51] LABS: CLARITY,URINE CLEAR (CLEAR); COLOR,URINE AMBER (YELLOW); LEUKOCYTE ESTERASE ,URINE NEGATIVE (NEGATIVE); NITRITE,URINE NEGATIVE (NEGATIVE)
[2018-12-30 00:52] LABS: BILIRUBIN,URINE 2+ (NEGATIVE); KETONES,URINE 2+ (NEGATIVE); PROTEIN,URINE DIPSTICK 1+ (NEGATIVE); URINE UROBILINOGEN 4 mg/dL (0.2 - 1)
[2018-12-30 00:53] LABS: EPITHELIAL CELLS,URINE FEW /LPF; MUCUS,URINE MANY (RARE); RBC,URINE 0-5 /HPF (0-5); WBC,URINE (MAN) 0-5 /HPF (0-5)
[2018-12-30] MEDS ORDERED: ALBUTEROL/IPRATROPIUM 3 ML NEB NEB ONE (01:30)
--- NOTE | 2018-12-30 01:40 | Diagnostic Imaging Report ---
ADDENDUM #1 Addendum impression: Error in speech recognition. The statement in the lungs and Airways "no pulmonary embolism " should state "pulmonary embolism ". Signed by: Dr. Mitch Hirsch M.D. on 12/30/2018 1:50 AM ORIGINAL REPORT EXAMINATION: CT scan of the chest with contrast. TECHNIQUE: Helical CT images of the chest were performed from the lung apices to the level of the adrenal glands after the intravenous administration of 100 cc of Isovue 300. Coronal and sagittal reformatted images were obtained.Dose modulation, iterative reconstruction, and/or weight based adjustment of the mA/kV was utilized to reduce the radiation dose to as low as reasonably achievable. COMPARISON: None. CLINICAL HISTORY:Cough, chest pain DISCUSSION: LINES/TUBES: None. LUNGS AND AIRWAYS: Right lung decreased volume with lung base atelectasis. Lingular atelectasis. No pulmonary embolism. Segmental pulmonary embolus in the right upper lobe axial image 35, possibly right lower lobe image 66, left upper lobe image 39, lingula image 47, and left lower lobe image 69. PLEURA: No pneumothorax or pleural effusions. HEART AND MEDIASTINUM: The thyroid gland is normal. Coronary artery calcifications. LYMPH NODES: There is no mediastinal, hilar or axillary lymphadenopathy. ABDOMEN: Cholecystectomy clips. BONES AND SOFT TISSUES: No acute bony abnormalities. IMPRESSION: Bilateral segmental pulmonary emboli. Lung base atelectasis. Signed by: Dr. Mitch Hirsch M.D. on 12/30/2018 1:37 AM
[2018-12-30] MEDS ORDERED: ENOXAPARIN SODIUM INJ 100 MG/ML SYR SC STA (01:44)
[2018-12-30] MEDS ORDERED: SODIUM CHLORIDE FLUSH 10 ML SYR INJ PRN (02:00)
[2018-12-30] MEDS ORDERED: ONDANSETRON HCL INJ 2MG/ML 2ML 2 MG/ML VIAL IV PRN (02:00)
[2018-12-30] MEDS: ALBUTEROL/IPRATROPIUM 3 ML NEB NEB SCH ×6 (03:22→23:55)
--- NOTE | 2018-12-30 07:30 | NUR ---
Patient arrived from ER via bed with an admitting diagnosis of Dyspnea, and Bilateral PE. Patient is awake, alertx3, on 3L NC of O2 saturating 97% and per patient feels 100% better compared to last night. Productive cough noted. POC discussed with patient and sister, Adina. Both instructed to call for assistance as needed and verbalized understanding. Bed in lowest position, locked and call saucedo within reach.
[2018-12-30 07:33] VITALS: BP 160/98
[2018-12-30 07:35] VITALS: BP 160/98
[2018-12-30 08:01] VITALS: BP 160/98
[2018-12-30 08:43] LABS: CREATINE KINASE 102 IU/L (30-200)
[2018-12-30] MEDS: ENOXAPARIN SODIUM INJ 100 MG/ML SYR SC SCH ×2 (09:40→20:32)
--- NOTE | 2018-12-30 11:03 | NUR ---
Report given to RN.
[2018-12-30 11:40] VITALS: BP 148/89
[2018-12-30 16:28] VITALS: BP 142/94
[2018-12-30 16:36] LABS: CREATINE KINASE 70 IU/L (30-200)
[2018-12-30] MEDS: NIFEDIPINE CR 30 MG TAB PO SCH (17:39)
--- NOTE | 2018-12-30 18:18 | Consultation ---
DATE OF CONSULTATION: 12/30/2018 Cardiology Consultation CONSULTING PHYSICIAN: Dr. Dereje Esquivel. REASON FOR CONSULTATION: Shortness of breath and tachycardia. CHIEF COMPLAINT: Breathlessness and some difficulty catching his breath. HISTORY OF PRESENT ILLNESS: Mr. Sinha is a 58-year-old gentleman with past medical history of recent vasovagal syncope on December 23, 2018, after cooking and he cut his 3rd left finger. He saw the blood, became lightheaded and ended up passing out hitting his spine. He came in with severe upper lumbar spine pain and had a compression fracture. The patient had issues with pain management and was in the hospital and Neurosurgery was consulted for evaluation; however, just on conservative therapy and observation, the patient did better. He was discharged home and had been doing okay. The patient reports that on December 28, on Sunday, the patient reports that his heart rate was racing and noted to be significantly short of breath and just easily fatigued. He reports that with several steps he could not catch his breath and has been having fits of cough. The patient denies any fevers or chills. On Sunday, he reports that the symptoms got really bad and after talking to a nurse friend of him, he advised him to come to the hospital for further evaluation. In the emergency room, he had a CAT scan done of the chest, which revealed the diagnosis of pulmonary embolism. Currently, the patient denies any chest pain. He has cough productive of yellowish sputum and has swelling in both of his legs that is moderate. He is doing okay at the present time with his oxygen via nasal cannula from a respiratory standpoint. PAST MEDICAL HISTORY: 1. History of L1 spinal compression fracture diagnosed recently. 2. Morbid obesity. 3. Hypertension, essential. 4. History of vasovagal syncope. PAST SURGICAL HISTORY: Denies. FAMILY HISTORY: Father of bladder cancer in his 60s, he was diabetic. Mother of stomach cancer at age of 67. He has a sister with metabolic syndrome. SOCIAL HISTORY: He is . He is a lifelong nonsmoker. Denies alcohol or illicit drug use. 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 ALLERGIES: HYDRALAZINE. HOME MEDICATIONS: Nifedipine 30 mg daily, Tylenol No. 3 one tablet q.4 hours p.r.n. pain. REVIEW OF SYSTEMS: GENERAL: Positive for fatigue, malaise. Denies any fevers, chills. HEENT: No headaches, visual complaints, sore throat. Does have some nasal stuffiness. RESPIRATORY: Positive for exertional dyspnea, cough productive of sputum as stated above and some slight wheezing. CARDIOVASCULAR: Denies any chest pain or discomfort. Positive for heart racing. Exertional dyspnea noted as well as bilateral leg swelling. GI: Denies any abdominal pain, bright red blood per rectum, melena, hematemesis. : Denies any dysuria or changes in urinary frequency. MUSCULOSKELETAL: Positive for leg swelling in both of his legs. No claudication symptoms. No calf tenderness or pain. Positive for markedly improved lumbar spine pain. HEMATOLOGY: Positive for easy bruising. No bleeding SKIN: No rashes or breakdowns. NEUROLOGIC: Denies any focal weakness, numbness, tingling, seizures, headache, TIA, or stroke-like symptoms. Remainder of review of systems negative, otherwise as mentioned. PHYSICAL EXAMINATION: VITAL SIGNS: Height of 64 inches, weight of 215 pounds, BMI is 37. Temperature of 97.1, pulse of 111, respiratory rate of 22, O2 saturation is 97% on 3 L nasal cannula, and blood pressure is 148/89. GENERAL: This is a morbidly obese gentleman, who is lying in bed, currently in no apparent distress. HEENT: Normocephalic, atraumatic. Pupils are equal, round, and reactive to light. Extraocular movements are intact. Oropharynx is clear. NECK: There is elevation of jugular venous pulsation. No carotid bruits. CARDIOVASCULAR: Regular rate and rhythm. Normal S1, S2. There appears to be a soft right-sided S4 gallop and 2/6 systolic murmur at left lower sternal border. LUNGS: Show diminished bibasilar breath sounds and scattered rhonchi and wheezing. ABDOMEN: Soft, nontender, obese with normoactive bowel sounds. No hepatosplenomegaly. BACK: No costovertebral angle tenderness. EXTREMITIES: Warm with venous stasis changes in his legs and 2+ edema in both legs and both legs appear relatively symmetric. NEUROLOGIC: He is alert and oriented. Cranial nerves 2 through 12 are intact. Moves all four extremities and appears nonfocal. LABORATORY DATA: White count of 9.3, hemoglobin 15.8, hematocrit of 45.0, platelets of 215. Sodium 140, potassium 3.9, chloride 101, bicarb of 27, BUN 19, creatinine of 0.59, glucose of 112, calcium of 9.5. AST 47, ALT 121, alkaline phosphatase 74, total protein of 7.0, albumin of 3.6. Troponin went from 0.00 to less than 0.001. BNP is 20.2. INR is 0.95. D-dimer is elevated at 1.63. UA shows 0-[address] reports bilateral segmental pulmonary emboli and atelectatic base of the lung. EKG reveals sinus tachycardia and nonspecific T-wave changes in the lateral precordial leads. DIAGNOSES: 1. Acute bilateral pulmonary emboli. 2. Acute hypoxic respiratory failure. 3. Tachycardia secondary to pulmonary embolism, abnormal EKG. 4. Obesity. 5. Hypertension, essential. 6. Immobility secondary to recent spinal compression fracture along with sedentary lifestyle and sedentary work. PLAN/RECOMMENDATIONS: 1. From a cardiovascular standpoint, agree with current management with systemic anticoagulant therapy. 2. Pulmonary has been called to evaluate the patient for his PE. 3. We will continue antihypertensive therapy. 4. The patient had recent echo done less than one month showing EF baseline is of 65% to 70% and suspect no significant change in his LV function. 5. We will continue to follow this patient. MD MONROE Kendrick/[place] /[id number]
[2018-12-30 20:00] VITALS: BP 137/98
[2018-12-30] MEDS ORDERED: SALINE 0.65% NAS SOLN 1 SPRAY BTL PRN (20:30)
[2018-12-31] VITALS (10 sets, daily range): BP systolic 137–174; BP diastolic 85–98
--- NOTE | 2018-12-31 03:05 | Consultation ---
DATE OF CONSULTATION: 12/30/2018 Pulmonary Medicine Consult REASON FOR REFERRAL: Pulmonary emboli. HISTORY OF PRESENT ILLNESS: Mr. Sinha is a pleasant 58-year-old gentleman with pulmonary emboli. The patient had a recent hospitalization on December 22, 2018. The patient had cut on his finger. He was bleeding and subsequently he had a fall. He believes he had syncope that lasted no more than few seconds. The patient had an evaluation in the hospital, which found he had an acute compression fracture of L1, superior endplate with mild retropulsion resulting mild canal stenosis. CT head was negative. The patient had echocardiogram done on December 24, 2018, which demonstrated LVEF of 65% to 70%, unclear RVSP due to limited view. The patient had carotid ultrasounds, which determined less than 15% stenosis bilaterally. The patient was able to finally walk on the last day within the hospital, which gives about 4 days that he was mostly bed bound. The patient went home and was reasonably improving for 3 days until he felt more dyspnea. For the last 2-1/2 days, he has been having a pattern of progressive dyspnea and he has to sit up to catch his breath. He does come given the findings at this point in the emergency room. At this point, CT chest was done showing multiple bilateral pulmonary emboli overall with at least a moderate burden of clots being present. PAST MEDICAL HISTORY: L1 spinal compression fracture on conservative management on December 2018. Obesity. Hypertension. MEDICATIONS: Medication list reviewed per electronic record. Mainly just Tylenol #3 for now and at some point, he was on nifedipine. ALLERGIES: HYDRALAZINE. SOCIAL HISTORY: No smoking. No drinking. No drugs. 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 FAMILY HISTORY: Noncontributory to this condition. He has no history of any body with clots in his family. REVIEW OF SYSTEMS: GENERAL: No weight changes. OPHTHALMOLOGIC: No double vision. ENT: No ulcers in mouth. LUNGS: No history of asthma. IMMUNOLOGIC: There are mild allergies. CARDIOVASCULAR: No heart attacks. GI: There is constipation that got relieved couple of days ago. : No blood in urine. NEUROLOGIC: No seizures. DERMATOLOGIC: No rashes. MUSCULOSKELETAL: Mild arthritis. PHYSICAL EXAMINATION: VITAL SIGNS: Afebrile, vital signs noted and reviewed, stable per the chart record. Include heart rate 103 to 117, blood pressure sustained in 140s to 160s. GENERAL: No distress, but he looks pale and weak and exhausted. He is having to sit upright to catch his breath. HEENT: Normocephalic and atraumatic. NECK: Supple. THROAT: Midline. LUNGS: Bilateral air entry, rare rhonchi. CARDIOVASCULAR: S1, S2. No murmurs, rubs, or gallops. ABDOMEN: Soft and nontender. EXTREMITIES: No clubbing, no cyanosis, there is 2+ edema in legs. INTEGUMENT: No rash or purpura. LABORATORY DATA: Labs reviewed per the chart record. 27 bicarbonate, 2.6 creatinine, 3.9 potassium. 9.2 white count, 45 hematocrit, 215 platelets. IMPRESSION AND PLAN: 1. Bilateral pulmonary emboli. 2. Shortness of breath. 3. History of intermittent allergies. 4. Hypertension. 5. History of recent hospitalization including L-spine fracture and sedentary recovery for 4 days until he starts walking again. 6. Bronchitis, not otherwise specified, possible chronic bronchitis, although unclear. Continue aggressive anticoagulation. The patient should have good blood pressure control as well. Keep him bed rest for the most part for a couple of days, given his significant embolism burden. The patient is reasonable for cardiac evaluation and Dr. Oglesby was seeing the patient. We will follow up closely. Thank you very much, Dr. Esquivel for allowing me a chance to participate in the care of Mr. Sinha. Do not hesitate to contact me if I could help in any way. MD MAURISIO Parekh/[place]H /[id number]
[2018-12-31] MEDS: ALBUTEROL/IPRATROPIUM 3 ML NEB NEB SCH ×6 (03:14→23:18)
[2018-12-31 05:53] LABS: BASOPHILS % 0.3 % (0.0-1.0); EOSINOPHILS # (AUTO) 0.1 (0.0-0.4); EOSINOPHILS % 1.6 % (0.0-6.0); HEMATOCRIT 42.6 % (38.2-49.6); LYMPHOCYTES # (AUTO) 0.8 (1.0-3.2); LYMPHOCYTES % 10.7 % (18.0-39.1); MEAN CORPUSCULAR HGB CONC 32.9 g/dL (31-35); MEAN CORPUSCULAR VOLUME 94.5 fL (81-99); MONOCYTES % 12.8 % (4.4-11.3); NEUTROPHILS # (AUTO) 5.4 (2.1-6.9); NEUTROPHILS % 73.3 % (38.7-80.0); PLATELET COUNT 225 x10e3/uL (140-360); RED BLOOD COUNT 4.51 x10e6/uL (4.3-5.7); RED CELL DISTRIBUTION WIDTH 12.5 % (11.7-14.4)
[2018-12-31 06:01] LABS: PARTIAL THROMBOPLASTIN TIME 32.3 seconds (23.8-35.5); PROTHROMBIN TIME 13.7 seconds (11.9-14.5)
[2018-12-31 06:07] LABS: ALANINE AMINOTRANSFERASE 86 IU/L (0-55); ALBUMIN 3.1 g/dL (3.5-5.0); ALBUMIN/GLOBULIN RATIO 1.1 (0.8-2.0); ALKALINE PHOSPHATASE 64 IU/L (40-150); ANION GAP 13.2 mmol/L (8-16); BLOOD UREA NITROGEN 22 mg/dL (7-26); BUN/CREATININE RATIO 37 (6-25); CALCIUM 9.1 mg/dL (8.4-10.2); CARBON DIOXIDE 31 mmol/L (22-29); CHLORIDE 100 mmol/L (98-107); CREATININE, SERUM 0.59 mg/dL (0.72-1.25); EST GLOMERULAR FILTRATION RATE > 60 ML/MIN (60-); GLUCOSE 97 mg/dL (74-118); POTASSIUM 4.2 mmol/L (3.5-5.1); SODIUM 140 mmol/L (136-145)
--- NOTE | 2018-12-31 07:03 | NUR ---
RECEIVED PATIENT RESTING IN BED. NO ACUTE DISTRESS NOTED. NC @ 3L, DENIES SOB. CALL LIGHT WITHIN REACH. BED IN THE LOWEST POSITION.
[2018-12-31] MEDS: NIFEDIPINE CR 30 MG TAB PO SCH (08:44)
[2018-12-31] MEDS: ENOXAPARIN SODIUM INJ 100 MG/ML SYR SC SCH ×2 (08:44→21:07)
--- NOTE | 2018-12-31 10:25 | NUR ---
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
--- NOTE | 2018-12-31 15:45 | NUR ---
Visit made by the Spiritual Care Department Pastoral Visitor, Consuelo Mccauley. PV provided pastoral presence, prayer, hospitality, and supportive listening. Pastoral Visitor informed pt/family of the scope of [facility] and availability. DIMA TELLES Medicare Sales Representative Spiritual Care Department O: [phone] Pager: [phone] ([phone] number calling from)
[2018-12-31] MEDS ORDERED: ONDANSETRON HCL 4 MG ORAL DISINTEGRATING TAB PO PRN (16:45)
--- NOTE | 2018-12-31 16:58 | Progress Note ---
DATE: 12/31/2018 Pulmonary Medicine Progress Note SUBJECTIVE: Mr. Sinha was seen and examined at bedside. He continues to have steady progress. He is feeling better with more energy today. He is having less dyspnea. He still has a cough with secretions. No hemoptysis. REVIEW OF SYSTEMS: No headaches, no bleeding. OBJECTIVE: VITAL SIGNS: Afebrile, vital signs noted, reviewed per the chart record. GENERAL: In no acute distress, alert and calm. HEENT: Normocephalic, atraumatic. NECK: Supple. Throat midline. LUNGS: Bilateral air entry, few rhonchi. CARDIOVASCULAR: S1, S2. No murmurs, rubs, or gallops. ABDOMEN: Soft, nontender. EXTREMITIES: No clubbing. No cyanosis. There is 2+ edema in legs. INTEGUMENT: No rash or purpura. LABORATORY DATA: 43 hematocrit, 225 platelets. 21 bicarbonate. IMPRESSION AND PLAN: 1. Multiple bilateral pulmonary emboli. 2. Bronchitis, acute. Possible chronic underlying bronchitis. 3. Obesity. 4. Recent fall and lumbar spinal fracture and prolonged immobility thereafter. Continue mostly bed rest today. Low endurance for today as patient still with significant risk from the clot burden. The patient can have more anticoagulation. If he continues to do better by tomorrow, we will start to push a little bit more with endurance exercises and even physical therapy. MD MAURISIO Parekh/SANTHOSH /[id number]
--- NOTE | 2018-12-31 19:25 | NUR ---
REPORT GIVEN TO ONCOMING NURSE, WALKING ROUNDS DONE. PATIENT IS RESTING IN BED. FAMILY MEMBER AT BEDSIDE. CALL LIGHT WITHIN REACH. BED IN THE LOWEST POSITION.
[2019-01-01] VITALS (7 sets, daily range): BP systolic 131–144; BP diastolic 69–86
[2019-01-01] MEDS: ALBUTEROL/IPRATROPIUM 3 ML NEB NEB SCH ×6 (00:36→19:26)
--- NOTE | 2019-01-01 07:30 | NUR ---
Pt sitting in chair in room. Aox4 and able to verbalize needs. Denies any pain at this time. Breaths are even and unlabored on 2L/NC. Pt is able to ambulate with minimum assistance.
[2019-01-01] MEDS: ENOXAPARIN SODIUM INJ 100 MG/ML SYR SC SCH ×2 (08:39→21:24)
[2019-01-01] MEDS: NIFEDIPINE CR 30 MG TAB PO SCH (08:39)
--- NOTE | 2019-01-01 16:29 | Progress Note ---
DATE: 01/01/2019 Pulmonary Medicine Progress Note SUBJECTIVE: Mr. Sinha was seen and examined at bedside. He continues to have steady progress. The patient able to function better on walking. He walked with PT today. He did not have any presyncope nor excessive dizziness. Furthermore, the patient without any gross bleeding. REVIEW OF SYSTEMS: No headaches, no chest pain. OBJECTIVE: VITAL SIGNS: Afebrile, vital signs stable noted per the chart record. GENERAL: No acute distress, alert and calm. HEENT: Normocephalic, atraumatic. NECK: Supple. Throat midline. LUNGS: Bilateral air entry, few wheezes on right side. CARDIOVASCULAR: S1, S2. No murmurs, rubs, or gallops. ABDOMEN: Soft and nontender. EXTREMITIES: No clubbing, no cyanosis. There is still 2+ edema in legs. INTEGUMENT: No rash. No purpura. LABS: No new lab at baseline. IMPRESSION: 1. Bilateral pulmonary emboli, sizable burden. 2. Leg edema. 3. Wheezing, possible bronchitis, acute plus or minus crying. 4. Obesity. PLAN: Repeat chest x-ray tomorrow to evaluate the pulmonary artery margins. Continue to mobilize the patient slowly. Continue bronchodilators for the wheezing. The patient will need aggressive outpatient evaluation and he needs to have insurance that his pulmonary artery pressures restore to normal. Edema hopefully should go down and if it does not go down, we will consider compression stockings. Diuretics can also be considered. MD MAURISIO Parekh/SANTHOSH /[id number]
--- NOTE | 2019-01-01 17:00 | NUR ---
Pt in chair. aox4 and able to verbalize needs. Denies any pain at this time. 0 s/s of acute distress noted. Breaths are even and unlabored.
--- NOTE | 2019-01-01 19:30 | NUR ---
received pt sitting in recliner, no c/o pain or discomfort, resp improved, on o2 at 3L via NC, call light in reach
[2019-01-02] VITALS (8 sets, daily range): BP systolic 111–156; BP diastolic 71–91
[2019-01-02] MEDS: ALBUTEROL/IPRATROPIUM 3 ML NEB NEB SCH ×6 (00:36→20:11)
--- NOTE | 2019-01-02 06:10 | Diagnostic Imaging Report ---
Examination: Single AP view of the chest. COMPARISON: Chest CT 12/30/2018 INDICATION: Dyspnea, effusion IMPRESSION: 1. Lines and Tubes: None 2. Markedly hypoinflated lungs. Bibasilar atelectasis. Eventration of the right hemidiaphragm. 3. Cardiac silhouette and central pulmonary vasculature accentuated by low lung volumes 4. No acute bony abnormalities. Signed by: Dr. Daniel Milian M.D. on 01/02/2019 6:07 AM
[2019-01-02 06:37] LABS: BASOPHILS % 0.5 % (0.0-1.0); EOSINOPHILS # (AUTO) 0.2 (0.0-0.4); EOSINOPHILS % 1.7 % (0.0-6.0); HEMATOCRIT 41.1 % (38.2-49.6); HEMOGLOBIN 13.5 g/dL (14.0-18.0); LYMPHOCYTES # (AUTO) 1.1 (1.0-3.2); LYMPHOCYTES % 12.6 % (18.0-39.1); MEAN CORPUSCULAR HGB CONC 32.8 g/dL (31-35); MEAN CORPUSCULAR VOLUME 94.5 fL (81-99); MONOCYTES # (AUTO) 0.7 (0.2-0.8); MONOCYTES % 8.2 % (4.4-11.3); NEUTROPHILS # (AUTO) 6.6 (2.1-6.9); NEUTROPHILS % 75.5 % (38.7-80.0); PLATELET COUNT 240 x10e3/uL (140-360); RED BLOOD COUNT 4.35 x10e6/uL (4.3-5.7); RED CELL DISTRIBUTION WIDTH 12.2 % (11.7-14.4)
--- NOTE | 2019-01-02 07:30 | NUR ---
Received pt in recliner this morning pt is ax4 and able to verbalize needs. Denies any pain at this time. Continues on O2 2L/NC and denies any SOB.
[2019-01-02] MEDS: NIFEDIPINE CR 30 MG TAB PO SCH (08:45)
[2019-01-02] MEDS: ENOXAPARIN SODIUM INJ 100 MG/ML SYR SC SCH (08:45)
--- NOTE | 2019-01-02 15:14 | Progress Note ---
DATE: 01/02/2019 Pulmonary Medicine Progress Note SUBJECTIVE: Mr. Sinha was seen and examined at bedside. Chest x-ray with low lung volumes noted. However limitation look in the vasculature. 3 L/minute by nasal cannula. He continues to feel slightly better. He did not walk today yet. REVIEW OF SYSTEMS: No headaches, no bleeding. OBJECTIVE: VITAL SIGNS: Afebrile. Vital signs reviewed per the chart record. GENERAL: In no acute distress, alert and calm, but looks tired in bed. HEENT: Normocephalic, atraumatic. NECK: Supple. Throat midline. LUNGS: Bilateral air entry, limited air entry. CARDIOVASCULAR: S1, S2. No murmurs, rubs, or gallops. ABDOMEN: Soft, nontender, obese. EXTREMITIES: No clubbing no cyanosis. There is still 2+ edema. INTEGUMENT: No rash or purpura. LABORATORY DATA: 9 white count, 41 hematocrit, 240 platelets. IMPRESSION AND PLAN: 1. Sizable pulmonary emboli bilaterally. 2. Significant hypoventilation, possible obesity hypoventilation. 3. Obese. 4. Possible sleep apnea. 5. Suspect some level of clinical pulmonary hypertension now. 6. Weakness. 7. Status post recent lumbar fracture. Continue to mobilize the patient. Continue blood thinners. Promote weight loss. Outpatient re-evaluation of stress on the heart and lungs. MD MAURISIO Parekh/SANTHOSH /[id number]
[2019-01-02] MEDS: RIVAROXABAN 15 MG TABLET PO SCH (18:14)
--- NOTE | 2019-01-02 18:17 | NUR ---
here to see pt and gave new orders to stop lovenox and start xarelto. Pt is of oxygen at this time. His O2 sat is 89-90 on room air will continue to monitor O2 sat on room air. Possible discharge tomorrow.
--- NOTE | 2019-01-03 00:12 | NUR ---
patient continues to sleep. no s/s of distress observed. will continue to monitor. call light within easy reach.
[2019-01-03 00:38] VITALS: BP 136/79
[2019-01-03] MEDS: ALBUTEROL/IPRATROPIUM 3 ML NEB NEB SCH ×4 (03:00→14:30)
[2019-01-03 04:00] VITALS: BP 144/82
[2019-01-03 07:20] VITALS: BP 140/84
--- NOTE | 2019-01-03 07:20 | NUR ---
PATIENT OUT OF BED TO RECLINING CHAIR RECEIVING NEB TREATMENT. TELEMETRY BOX IN PLACE. CALL LIGHT AT REACH.
[2019-01-03 07:37] VITALS: BP 140/84
[2019-01-03] MEDS ORDERED: NIFEDIPINE CR 30 MG TAB PO SCH (09:00)
[2019-01-03] MEDS: RIVAROXABAN 15 MG TABLET PO SCH (09:17)
--- NOTE | 2019-01-03 10:50 | NUR ---
WALKING ROUND MADE. PATIENT SITTING ON RECLINING CHAIR WATCHING TV. MD IN TO SEE PATIENT, ORDER RECEIVED TO D/C HOME WITH HOME O2. PLANNING COORDINATOR NOTIFIED. CALL LIGHT AT REACH.
[2019-01-03 11:15] VITALS: BP 135/79
--- NOTE | 2019-01-03 15:04 | Progress Note ---
DATE: 01/03/2019 Pulmonary Medicine Progress Note SUBJECTIVE: Mr. Sinha was seen and examined at bedside. He continues to have slow progress. He is able to walk mostly independently although slow. He is having increased functional endurance, less dyspnea. Oxygen 2 L/minute by nasal cannula being used at this time. The patient had a bowel movement today. REVIEW OF SYSTEMS: No headaches, no bleeding. OBJECTIVE: VITAL SIGNS: Afebrile, vital signs stable, reviewed per the chart record. GENERAL: In no acute distress, alert and calm. HEENT: Normocephalic, atraumatic. NECK: Supple. Throat midline. LUNGS: Bilateral air entry, decreased breath sounds at the bases, rare rhonchi. CARDIOVASCULAR: S1, S2. No murmurs, rubs, or gallops. ABDOMINAL: Soft, nontender. EXTREMITIES: No clubbing. No cyanosis, there is 1 to 2+ edema of the legs. INTEGUMENT: No rash or purpura. LABORATORY DATA: No new updates. IMPRESSION AND PLAN: 1. Bilateral pulmonary emboli. 2. Clinical pulmonary hypertension, multifactorial. 3. Extremely low lung volumes, obesity related. Possible obesity hypoventilation. 4. Obstructive sleep apnea, probable. 5. Intermittent bronchitis. 6. Continue to mobilize the patient. As he improves, we may allow him to go home today. Go ahead and switch to Xarelto. He needs outpatient PFTs and consideration for possible sleep evaluation and Pulmonary evaluation given the findings. MD MAURISIO Parekh/SANTHOSH /[id number]
[2019-01-03] MEDS ORDERED: XARELTO20 MG PO (15:14)
[2019-01-03] MEDS ORDERED: PROAIR HFA INH8.5 GM IH ×2 (15:16→15:18)
[2019-01-03] MEDS ORDERED: CEFUROXIME250 MG PO (15:19)
--- NOTE | 2019-01-03 16:04 | NUR ---
PATIENT ASSISTED TO THE RESTROOM AND BACK TO CHAIR. HAD A LARGE BM. CALL LIGHT AT REACH.
--- NOTE | 2019-01-03 17:00 | NUR ---
PATIENT DISCHARGED HOME. DISCHARGE INSTRUCTIONS, PRESCRIPTIONS, AND FOLLOW UP GIVEN TO PATIENT, HE VERBALIZED UNDERSTANDING. IV TO RIGHT AC REMOVED WITH TIP INTACT. ALL PERSONAL TAKEN WITH PATIENT. LEFT UNIT PER WHEEL CHAIR TO FRONT LOBBY IN STABLE CONDITION.
== END 2019-01-03 17:00 | disposition home or self-care (01) | DRG 176 ==
LOC: ER 23:17 → ERHOLD 12-30 02:06 → IMCU 12-30 07:54 → MED/SURG3 12-30 18:44
DX: I26.99 Other pulmonary embolism without acute cor pulmonale (principal); M48.56XA Collapsed vertebra, not elsewhere classified, lumbar region, initial encounter for fracture; J44.0 Chronic obstructive pulmonary disease with (acute) lower respiratory infection; J44.1 Chronic obstructive pulmonary disease with (acute) exacerbation; J20.9 Acute bronchitis, unspecified; R09.02 Hypoxemia; Z91.81 History of falling; E66.01 Morbid (severe) obesity due to excess calories; Z68.36 Body mass index [BMI] 36.0-36.9, adult
CPT/HCPCS: 36415; 71045; 71260; 80053; 81001; 82550; 82553; 82948; 83880; 84484; 85025; 85379; 85610; 85730; 87086; 93005; 94640; 99284; J1650; Q9967

== ENCOUNTER → 2019-03-28 | Outpatient (CLI) | payer OTHER ==
[~2019-03-28] MED LIST changes: +CEFUROXIME250 MG PO; +PROAIR HFA INH8.5 GM IH; +XARELTO20 MG PO
--- NOTE | 2019-04-17 15:41 | Polysomnography ---
DATE OF STUDY: 04/17/2019 REFERRING PHYSICIAN: Bud Ortega MD STUDY: Diagnostic polysomnogram, home sleep study. HISTORY OF PRESENT ILLNESS: Mr. Sinha is a 58-year-old gentleman with hypoxemia, pulmonary hypertension. The patient with past medical history of dyslipidemia, hypertension, obesity, obstructive sleep apnea, elevated hemidiaphragm, bronchitis, pulmonary embolism, and likely secondary to pulmonary hypertension. MEDICATIONS: Include nifedipine, Xarelto. Lincoln sleepiness Scale score is 4. BMI is 32.6. The patient presents for a diagnostic polysomnogram, type 3 portable monitor. FINDINGS: Sleep study acquisition was performed using an 8-Channel device, of note, leg EMG not utilized. The patient performed study at home. Intermittent snoring was noted. Total sleep time recorded as 508.5 minutes. A total of 39 obstructive apneas, 12 central apneas and 54 hypopneas were noted per apnea-hypopnea index of 12.4 events per hour. Lowest oxygen saturation was 82%. INTERPRETATION: This was an abnormal polysomnogram due to the presence of: 1. Mild obstructive sleep apnea. This is evidenced by snoring, desaturations, and increased apnea-hypopnea index. An evaluation and management of factors such as obesity, thyroid disease, and structure/anatomic abnormalities in the upper airway may be helpful. The patient is recommended for auto-CPAP, usual setting 4 to 20 cm of water, heated humidifier, mask to fit, and other supplies as indicated. Alternatives to CPAP may be considered in the appropriate clinical situation. Bud Ortega MD ABI Certified in Sleep Medicine GMN/MODL /[id number]
== END ==
LOC: SLEEP 20:34
PROVIDERS: ATTEND Internal Medicine Critical Care Medicine
DX: G47.33 Obstructive sleep apnea (adult) (pediatric) (principal)
CPT/HCPCS: 95806